=== PATIENT | male | born 1955 | race Caucasian/White ===

== ENCOUNTER 2019-06-02 12:48 | Inpatient (IN) ==
--- NOTE | 2019-06-02 12:51 | Emergency Department Note ---
Disposition Clinical Impression: Cellulitis Disposition: Admitted As Inpatient Condition: Good Referrals: NONE,PCP [Primary Care Provider] - Forms: ED Satisfaction Letter Time of Disposition: 14:50 Skin/Abscess/FB HPI Chief complaint: ED Skin/Abscess/Foreign Body Stated complaint: possible abscess to left buttock Time Seen by Provider: 06/02/19 12:51 Source: patient Mode of arrival: ambulatory Limitations: no limitations Nursing Notes Reviewed: Yes Vital Signs Reviewed: Yes HPI Narrative: 63-year-old gentleman who presents today with left buttock pain. He states that about a week ago he noticed that he got a bug bite while he was out camping. He states the whole buttock is red and swollen now. He has drainage from it. He states he does have a history of hepatitis C as well wanted us to be aware of that. He states he has not had fevers or chills is not having trouble with bowel movements. He states that the wound is getting bigger and the drainage getting worse they came in to be evaluated. No diabetes history no medical problems Pt Subjective Complaint: abscess/boil Home Medications Medication Instructions Recorded Confirmed No Known Home Drugs 06/02/19 06/02/19 Allergies Allergy/AdvReac Type Severity Reaction Status Date / Time No Known Allergies Allergy Verified 06/02/19 12:49 Review of Systems: All other systems are negative except as noted/marked Chart generated with voice recognition software Nursing notes reviewed Old records reviewed Past Medical History - Past Medical History Attestation: Yes The following information was validated with the patient. Source: patient, old records reviewed, nursing notes reviewed Medical history: Reports: no medical history Physical Exam - General Limitations: no limitations General appearance: alert, in no apparent distress - Head Head exam: atraumatic, normocephalic, normal inspection - Eye Eye exam: Present: normal appearance, PERRL, EOMI - ENT ENT exam: normal exam, normal oropharynx, mucous membranes moist - Neck Neck exam: Present: normal inspection, full ROM, trachea midline - Chest Chest inspection: Present: normal inspection, symmetric chest wall rise - Respiratory Respiratory exam: Present: normal lung sounds bilaterally - Cardiovascular Cardiovascular exam: Present: regular rate, normal rhythm, normal heart sounds - Abdominal Exam Abdominal exam: Present: soft, Non-Tender, normal bowel sounds. Absent: tenderness, distention, guarding, rebound, rigidity - Extremities Exam Extremities exam: Present: normal inspection, full ROM, normal capillary refill. Absent: tenderness, pedal edema - Back Exam Back exam: Present: other (Left buttock is erythematous edematous with purulent drainage no fluctuance appreciated) - Neurological Exam Neurological exam: Present: alert, oriented X3, CN II-XII intact - Psychiatric Psychiatric exam: Present: normal affect, normal mood - Skin Skin exam: Present: warm, dry, intact, normal color Course Vital Signs Temperature 98.7 F 06/02/19 12:50 Pulse Rate 99 06/02/19 12:50 Respiratory Rate 18 06/02/19 12:50 Blood Pressure 111/59 06/02/19 12:50 O2 Sat by Pulse Oximetry 94 06/02/19 12:50 Temperature 98.7 F 06/02/19 12:50 Pulse Rate 99 06/02/19 12:50 Respiratory Rate 18 06/02/19 13:50 Blood Pressure 116/65 06/02/19 13:50 O2 Sat by Pulse Oximetry 100 06/02/19 13:50 Oxygen Delivery Oxygen Delivery Room Air Skin/Abscess/Foreign Body - MDM Narrative Medical decision making narrative: 63-year-old man who presents today with right buttock swelling. He is a large area cellulitis. I did a CAT scan to rule out any abscess or necrotizing fasciitis. He has an elevated white count. I started him on IV Zosyn and vancomycin here. Initially was reluctant stay however he did agree to admission so that he can get this debrided and aggressively treated. Patient's comfortable with staying in the hospital. I spoke with Dr. Mccrary who agreed to accept the patient for admission and further treatment - Medical Records Medical records reviewed: Yes I reviewed the patient's medical records. - Lab Data Lab results reviewed: Yes I reviewed the patient's lab results. Result diagrams: 06/02/19 13:13 06/02/19 13:13 Lab Results 06/02/19 06/02/19 06/02/19 Range/Units 13:13 13:13 13:13 WBC 19.0 H (4.3-11.1) K/mcL RBC 4.98 (4.19-5.50) M/mcL Hgb 15.4 (12.9-16.9) g/dL Hct 45.3 (37.5-50.1) % MCV 91.0 (83.0-100.0) fL MCH 30.9 (28.0-33.3) pg MCHC 34.0 (31.6-35.5) g/dL RDW 13.2 (11.5-14.5) % Plt Count 229 (140-400) K/mcL MPV 12.1 (9.4-12.4) fL Immature Gran % 0.6 (0-4) % Seg Neutrophils % 85.9 % Lymphocytes % 5.0 % Monocytes % 7.7 % Eosinophils % 0.5 % Basophils % 0.3 % Neutrophils # 16.3 H (1.6-8.9) K/mcL Lymphocytes # 1.0 (0.6-4.6) K/mcL Monocytes # 1.5 H (0.0-1.3) K/mcL Eosinophils # 0.1 (0.0-0.6) K/mcL Basophils # 0.1 (0.0-0.2) K/mcL PT (9.4-12.1) Seconds INR APTT 29.4 (26.0-36.0) Seconds Sodium 137 (136-145) mEq/L Potassium 4.2 (3.5-5.1) mEq/L Chloride 101 (98-107) mEq/L Carbon Dioxide 27 (23-29) mEq/L BUN 11 (8-23) mg/dL Creatinine 0.98 (0.70-1.30) mg/dL Est GFR ( Amer) > 60 (> 60) Est GFR (Non-Af Amer) > 60 (> 60) BUN/Creatinine Ratio 11 (6-26) Glucose 132 H (70-105) mg/dL Calculated Osmolality 285 (280-300) Lactic Acid (0.5-2.2) mmol/L Calcium 9.3 (8.6-10.3) mg/dL 06/02/19 06/02/19 Range/Units 13:13 13:13 WBC (4.3-11.1) K/mcL RBC (4.19-5.50) M/mcL Hgb (12.9-16.9) g/dL Hct (37.5-50.1) % MCV (83.0-100.0) fL MCH (28.0-33.3) pg MCHC (31.6-35.5) g/dL RDW (11.5-14.5) % Plt Count (140-400) K/mcL MPV (9.4-12.4) fL Immature Gran % (0-4) % Seg Neutrophils % % Lymphocytes % % Monocytes % % Eosinophils % % Basophils % % Neutrophils # (1.6-8.9) K/mcL Lymphocytes # (0.6-4.6) K/mcL Monocytes # (0.0-1.3) K/mcL Eosinophils # (0.0-0.6) K/mcL Basophils # (0.0-0.2) K/mcL PT 13.4 H (9.4-12.1) Seconds INR 1.2 APTT (26.0-36.0) Seconds Sodium (136-145) mEq/L Potassium (3.5-5.1) mEq/L Chloride (98-107) mEq/L Carbon Dioxide (23-29) mEq/L BUN (8-23) mg/dL Creatinine (0.70-1.30) mg/dL Est GFR ( Amer) (> 60) Est GFR (Non-Af Amer) (> 60) BUN/Creatinine Ratio (6-26) Glucose (70-105) mg/dL Calculated Osmolality (280-300) Lactic Acid 2.0 (0.5-2.2) mmol/L Calcium (8.6-10.3) mg/dL - Radiology Data Radiology results reviewed: Yes I reviewed the patient's radiology results. EXAMINATION: CT OF THE PELVIS WITH CONTRAST, 06/02/2019 2:30 pm TECHNIQUE: CT of the pelvis was performed with the administration of intravenous contrast. Multiplanar reformatted images are provided for review. Dose modulation, iterative reconstruction, and/or weight based adjustment of the mA/kV was utilized to reduce the radiation dose to as low as reasonably achievable. COMPARISON: None HISTORY: ORDERING SYSTEM PROVIDED HISTORY: Abscess r/o necfasc 75 mL of Isovue 370 FINDINGS: Skin thickening and underlying subcutaneous edema to the left buttock. No focal fluid collection to suggest abscess formation. No soft tissue gas to suggest necrotizing fasciitis. No sinus or fistula tract identified. No acute or suspicious bony abnormalities. Evaluation of intrapelvic contents demonstrates no acute or suspicious abnormality. Visualized large and small bowel appear unremarkable. Urinary bladder and prostate are unremarkable. No lymphadenopathy is seen. CT/CT pelvis w iv no oral IMPRESSION: Skin thickening and underlying subcutaneous edema to the left buttock concerning for cellulitis. No focal fluid collection to suggest abscess. No soft tissue gas to suggest necrotizing fasciitis. No acute intrapelvic abnormalities. D/ / 06/02/2019 14:36:07 Sly Dahl MD / [email or web address] Interpreting Provider: Sly Dahl MD
[2019-06-02] MEDS ORDERED: Isovue-370 500 ML BOTTLE IVP ONE (13:01)
[2019-06-02] MEDS ORDERED: Piperacillin/Tazobactam 3.375 GM in 0.9 % Sodium Chloride Mini Bag 100 ML IVPB ONE (13:02)
[2019-06-02] MEDS ORDERED: 0.9 % Sodium Chloride 1,000 ML IVC ONE (13:02)
[2019-06-02 13:20] LABS: Basophils # 0.1 K/mcL (0.0-0.2); Basophils % 0.3 %; Eosinophils # 0.1 K/mcL (0.0-0.6); Eosinophils % 0.5 %; Hematocrit 45.3 % (37.5-50.1); Hemoglobin 15.4 g/dL (12.9-16.9); Immature Granulocytes % 0.6 % (0-4); Mean Corpuscular Hemoglobin 30.9 pg (28.0-33.3); Mean Platelet Volume 12.1 fL (9.4-12.4); Monocytes # 1.5 K/mcL (0.0-1.3); Monocytes % 7.7 %; Platelet Count 229 K/mcL (140-400); Red Blood Count 4.98 M/mcL (4.19-5.50); Red Cell Distribution Width 13.2 % (11.5-14.5); Segmented Neutrophils % 85.9 %
[2019-06-02 13:23] LABS: Neutrophils # 16.3 K/mcL (1.6-8.9)
[2019-06-02 13:35] LABS: INR 1.2; Prothrombin Time 13.4 Seconds (9.4-12.1)
[2019-06-02 14:03] LABS: BUN/Creatinine Ratio 11 (6-26); Blood Urea Nitrogen 11 mg/dL (8-23); Calcium 9.3 mg/dL (8.6-10.3); Carbon Dioxide 27 mEq/L (23-29); Chloride 101 mEq/L (98-107); Glucose 132 mg/dL (70-105); Osmolality,Calculated 285 (280-300); Potassium 4.2 mEq/L (3.5-5.1); Sodium 137 mEq/L (136-145); eGFR For African Americans > 60 (> 60); eGFR For Non-African Americans > 60 (> 60)
[2019-06-02] MEDS ORDERED: *HR* FentaNYL (PF) 100 MCG/2 ML VIAL IVP ONE ×2 (14:43→15:04)
[2019-06-02] MEDS ORDERED: Mag Hydrox/Al Hydrox/Simeth 30 ML UDC PO PRN (15:04)
[2019-06-02] MEDS ORDERED: Ondansetron ODT 4 MG TAB.RAPDIS SL PRN (15:04)
[2019-06-02] MEDS ORDERED: MOM Conc 10 ML UD.LIQ PO PRN (15:04)
[2019-06-02] MEDS ORDERED: Ketorolac 30 MG/ML VIAL IVP PRN (15:04)
[2019-06-02] MEDS ORDERED: Naloxone 0.4 MG/ML INJ IVP PRN (15:04)
[2019-06-02] MEDS ORDERED: *HR* HYDROcodone/Acet 5/325 mg TABLET PO PRN (15:04)
[2019-06-02] MEDS ORDERED: 0.9 % Sodium Chloride 1,000 ML IVC SCH (15:04)
[2019-06-02] MEDS ORDERED: Acetaminophen 325 MG TABLET PO PRN (15:04)
[2019-06-02 17:07] LABS: Bilirubin,Urine Negative (Negative); Blood,Urine Trace-intact (Negative); Clarity,Urine Clear (Clear); Color,Urine Yellow (Yellow); Glucose,Urine (UA) Normal (Normal); Ketones,Urine Negative (Negative); Leukocyte Esterase,Urine Negative (Negative); Nitrite,Urine Negative (Negative); Protein,Urine Trace mg/dL (Neg-Trace)
[2019-06-02 17:17] LABS: Bacteria,Urine Few per hpf (None-Few); Mucus,Urine Few (Few); RBC,Urine 0-3 per hpf (0-3); Squamous Epithelial Cell,Urine Few per lpf (None-Few)
[2019-06-02] MEDS: Lactobacillus 1 EACH CAP.SPRINK PO SCH (22:00)
[2019-06-02] MEDS: Piperacillin/Tazobactam 3.375 GM in 0.9 % Sodium Chloride Mini Bag 100 ML IVPB SCH (22:00)
[2019-06-03] MEDS: Piperacillin/Tazobactam 3.375 GM in 0.9 % Sodium Chloride Mini Bag 100 ML IVPB SCH ×3 (05:49→21:08)
[2019-06-03 06:42] LABS: Basophils % 0.3 %; Eosinophils # 0.2 K/mcL (0.0-0.6); Eosinophils % 1.2 %; Hematocrit 41.2 % (37.5-50.1); Hemoglobin 13.9 g/dL (12.9-16.9); Immature Granulocytes % 0.5 % (0-4); Lymphocytes # 1.1 K/mcL (0.6-4.6); Lymphocytes % 7.4 %; Mean Corpuscular HGB Conc 33.7 g/dL (31.6-35.5); Mean Corpuscular Hemoglobin 30.8 pg (28.0-33.3); Mean Corpuscular Volume 91.2 fL (83.0-100.0); Mean Platelet Volume 12.1 fL (9.4-12.4); Monocytes # 1.5 K/mcL (0.0-1.3); Monocytes % 9.8 %; Neutrophils # 12.4 K/mcL (1.6-8.9); Platelet Count 203 K/mcL (140-400); Red Blood Count 4.52 M/mcL (4.19-5.50); Red Cell Distribution Width 13.3 % (11.5-14.5); Segmented Neutrophils % 80.8 %; White Blood Count 15.4 K/mcL (4.3-11.1)
[2019-06-03 06:46] LABS: Basophils # 0.1 K/mcL (0.0-0.2)
[2019-06-03 07:02] LABS: Alanine Aminotransferase 50 Units/L (7-52); Albumin 2.9 g/dL (3.5-5.7); Albumin/Globulin Ratio 1.1 (1.1-2.2); Alkaline Phosphatase 89 Units/L (34-104); Aspartate Amino Transferase 24 Units/L (13-39); BUN/Creatinine Ratio 11 (6-26); Bilirubin,Total 0.7 mg/dL (0.3-1.0); Blood Urea Nitrogen 9 mg/dL (8-23); Calcium 8.5 mg/dL (8.6-10.3); Carbon Dioxide 25 mEq/L (23-29); Chloride 103 mEq/L (98-107); Globulin 2.6 g/dL (2.4-3.5); Glucose 116 mg/dL (70-105); Osmolality,Calculated 286 (280-300); Potassium 3.9 mEq/L (3.5-5.1); Sodium 138 mEq/L (136-145); Total Protein 5.5 g/dL (6.4-8.9); eGFR For African Americans > 60 (> 60); eGFR For Non-African Americans > 60 (> 60)
[2019-06-03] MEDS: Lactobacillus 1 EACH CAP.SPRINK PO SCH ×2 (08:37→21:08)
[2019-06-03] MEDS ORDERED: Ibuprofen 600 MG TABLET PO PRN (10:06)
[2019-06-03] MEDS ORDERED: Ondansetron ODT 4 MG TAB.RAPDIS SL PRN (10:08)
--- NOTE | 2019-06-03 10:12 | Internal Med History&Physical ---
Date of Encounter: 06/03/19 Time of Encounter: 09:45 Assessment and Plan (1) Cellulitis Current visit: Yes Status: Acute He has been started on IV Zosyn and vancomycin with lactobacillus. I suspect abscess formation is developing. Reevaluate daily. Qualifiers: Site of cellulitis: buttock Qualified Code(s): L03.317 - Cellulitis of buttock (2) Dyspnea on exertion Current visit: Yes Status: Acute Room air oximetry will be checked on 6 minute walk prior to discharge. (3) Cough Current visit: Yes Status: Acute His PCP can order additional workup such as chest x-ray and/or chest CT. (4) History of hepatitis Current visit: Yes Status: Acute Hepatitis profile will be ordered. Internal Medicine - H&P: HPI Chief complaint: Left buttock infection Admitted From: Emergency Dept Plans for Post Hospital Care: Home History of present illness: Mr. Goodman is a 63 year old male who came to emergency room stating he experienced a sensation of a bug bite on his left gluteal area the evening of May 26 while camping in the [place] [facility]. By the following day he noticed some incr eased redness and swelling at the bite area. He noticed drainage developing approximately 2 days later and began taking Cipro 500 mg daily from a leftover supply from a previous prescription. When the drainage and soreness did not improve he came to emergency room. He was evaluated and found to have fever of 100.0 and leukocytosis with left shift. No abscess was seen on CT scan. He was admitted to [facility] floor for ongoing care needs. He states he has not had a primary care physician for over 30 years. He does not use prescription medications. He denies other skin lesions. Past Med Surg Social Fam HX - Past Medical History Medical history: no medical history Additional medical history: hep c - Past Surgical History Additional surgical history: right hand - Social History Smoking Status: Current every day smoker Alcohol use: none Drug use: none Internal Medicine - H&P: Meds No Known Home Drugs 06/02/19 [History] Allergy/AdvReac Type Severity Reaction Status Date / Time No Known Allergies Allergy Verified 06/02/19 12:49 All Systems PM: A 10-system review of systems was performed and is negative for pertinent findings except as documented above in the HPI. Review of systems: Gen.: He states his weight has been stable for several years Cardiovascular: He denies hypertension RI heart failure angina dvt or pulmonary embolus Respiratory: He has smoked since age 20 up to 2 packs per day. He has dyspnea on exertion and reports a cough has been present intermittently for the past year GI: He reports being told he had hepatitis when he presented to a [facility] in 2013 with jaundice. He did not allow further testing has had no recurrence of jaundice. He denies other disorders of his liver gallbladder or e xocrine pancreas : He denies hematuria dysuria or kidney stones Neurologic: He denies large distribution strokes or seizures. Endocrine: He denies diabetes thyroid disease or hyperlipidemia Hematology/oncology: He denies blood disorders cancers or anemia Psychiatric: He denies anxiety depression or other mental health issues. [place] skeletal: He had a right hand injury at work in 2017 requiring surgical repair. He denies gout or other bone joint or muscle disorders. - Constitutional Vitals: Temp Pulse Resp BP Pulse Ox 99.2 F 77 22 102/58 96 06/03/19 06:20 06/03/19 06:20 06/03/19 06:20 06/03/19 06:20 06/03/19 06:20 Exam: Gen.: He is a well-developed well-nourished male lying in bed who appears in mild/moderate pain HEENT: Head is atraumatic and normal cephalic. Eyes: EOMI. There is no scleral icterus. Mouth: Mucosa is moist. Neck: Supple and nontender. There is no thyromegaly or adenopathy noted. Heart: Regular without murmurs gallops or ectopics Lungs: No wheezes or crackles are heard. Abdomen: Soft and nontender. No masses or guarding are noted. Extremities: There is no cyanosis edema or clubbing noted. Dorsalis pedis and posterior tibial pulses are trace to 1+ palpable bilaterally. Neurologic: Mental status: He is talkative and a good historian. Cranial nerves: Smile is symmetric. Forehead wrinkles bilaterally. Tongue protrudes midline. EOMI. Motor: There is no pronator drift. Cerebellar: Finger to nose is intact bilaterally. Skin: He has an erythematous and indurated area on his left posterior lateral upper gluteal area approximately 12 cm diameter. There is a shallow ulcerative area with purulent/necrotic exudate approximately 2-3 cm diameter near the center with smaller ulcerative areas and pustules in satellite formation. Internal Med - H&P Results - Labs CBC & Chem 7: 06/03/19 06:08 06/03/19 06:08 Labs: Short CBC 06/02/19 06/03/19 Range/Units 13:13 06:08 WBC 19.0 H 15.4 H (4.3-11.1) K/mcL Hgb 15.4 13.9 D (12.9-16.9) g/dL Hct 45.3 41.2 (37.5-50.1) % Plt Count 229 203 (140-400) K/mcL Neutrophils # 16.3 H 12.4 H (1.6-8.9) K/mcL BMP 06/02/19 06/03/19 13:13 06:08 Sodium 137 138 Potassium 4.2 3.9 Chloride 101 103 Carbon Dioxide 27 25 BUN 11 9 Creatinine 0.98 0.81 Glucose 132 H 116 H Calcium 9.3 8.5 L Liver Function 06/03/19 Range/Units 06:08 Total Bilirubin 0.7 (0.3-1.0) mg/dL AST 24 (13-39) Units/L ALT 50 (7-52) Units/L Alkaline Phosphatase 89 (34-104) Units/L Albumin 2.9 L (3.5-5.7) g/dL Urine 06/02/19 Range/Units 15:00 Urine Color Yellow (Yellow) Urine Clarity Clear (Clear) Urine pH 6.0 (5.0-8.0) pH Units Ur Specific [place] 1.010 (1.010-1.025) Urine Protein Trace (Neg-Trace) mg/dL Urine Glucose (UA) Normal (Normal) mg/dL - Impressions ITS Impressions Pelvis CT 06/02/19 13:01 IMPRESSION: Skin thickening and underlying subcutaneous edema to the left buttock concerning for cellulitis. No focal fluid collection to suggest abscess. No soft tissue gas to suggest necrotizing fasciitis. No acute intrapelvic abnormalities. D/ / 06/02/2019 14:36:07 Sly Dahl MD / [email or web address] Interpreting Provider: Sly Dahl MD
[2019-06-03] MEDS: *HR* Enoxaparin 40 MG/0.4 ML SYRINGE SQ SCH (10:41)
[2019-06-03] MEDS: 0.45 % Sodium Chloride w/KCl 20 MEQ/1,000 ML MLS IVC SCH (10:42)
[2019-06-03] MEDS: Acetaminophen 325 MG TABLET PO SCH ×2 (12:40→17:46)
[2019-06-03] MEDS ORDERED: Aminoglycoside Consult 1 EACH MC ONE (13:00)
[2019-06-03 21:02] LABS: Hepatitis B Surface Antigen Nonreactive (Nonreactive)
[2019-06-03 21:31] LABS: Hepatitis B Core IgM Nonreactive (Nonreactive); Hepatitis C Virus Antibody Nonreactive (Nonreactive)
[2019-06-03 21:33] LABS: Hepatitis A Antibody IgM Nonreactive (Nonreactive)
[2019-06-04] MEDS: Acetaminophen 325 MG TABLET PO SCH ×4 (00:58→18:25)
[2019-06-04] MEDS: 0.45 % Sodium Chloride w/KCl 20 MEQ/1,000 ML MLS IVC SCH ×2 (02:43→13:50)
[2019-06-04] MEDS: *HR* Enoxaparin 40 MG/0.4 ML SYRINGE SQ SCH ×2 (05:58→06:03)
[2019-06-04] MEDS: Piperacillin/Tazobactam 3.375 GM in 0.9 % Sodium Chloride Mini Bag 100 ML IVPB SCH ×3 (05:59→21:55)
[2019-06-04 06:47] LABS: Basophils # 0.1 K/mcL (0.0-0.2); Basophils % 0.5 %; Eosinophils # 0.3 K/mcL (0.0-0.6); Eosinophils % 1.9 %; Hematocrit 42.1 % (37.5-50.1); Immature Granulocytes % 0.8 % (0-4); Lymphocytes # 1.2 K/mcL (0.6-4.6); Lymphocytes % 9.1 %; Mean Corpuscular HGB Conc 33.3 g/dL (31.6-35.5); Mean Corpuscular Hemoglobin 30.8 pg (28.0-33.3); Mean Corpuscular Volume 92.7 fL (83.0-100.0); Mean Platelet Volume 11.6 fL (9.4-12.4); Monocytes # 1.1 K/mcL (0.0-1.3); Monocytes % 8.8 %; Neutrophils # 10.2 K/mcL (1.6-8.9); Platelet Count 236 K/mcL (140-400); Red Blood Count 4.54 M/mcL (4.19-5.50); Red Cell Distribution Width 13.3 % (11.5-14.5); Segmented Neutrophils % 78.9 %; White Blood Count 12.9 K/mcL (4.3-11.1)
[2019-06-04 07:07] LABS: BUN/Creatinine Ratio 10 (6-26); Blood Urea Nitrogen 8 mg/dL (8-23); Calcium 8.8 mg/dL (8.6-10.3); Carbon Dioxide 30 mEq/L (23-29); Chloride 104 mEq/L (98-107); Glucose 113 mg/dL (70-105); Osmolality,Calculated 287 (280-300); Potassium 4.3 mEq/L (3.5-5.1); Sodium 139 mEq/L (136-145); eGFR For African Americans > 60 (> 60); eGFR For Non-African Americans > 60 (> 60)
[2019-06-04] MEDS: Lactobacillus 1 EACH CAP.SPRINK PO SCH ×2 (08:27→21:54)
--- NOTE | 2019-06-04 10:19 | Internal Med Progress Note ---
Date of Encounter: 06/04/19 Time of Encounter: 10:10 - Assessment and plan (1) Cellulitis Current Visit: Yes Status: Acute Assessment and plan: June 04. WBC has decreased to 12.9 with less left shift. Temperature remains normal. Continue IV Zosyn and vancomycin with lactobacillus. Qualifiers: Site of cellulitis: buttock Qualified Code(s): L03.317 - Cellulitis of buttock (2) Dyspnea on exertion Current Visit: Yes Status: Acute Assessment and plan: June 04. Room air oximetry will be checked on 6 minute walk prior to discharge. (3) Cough Current Visit: Yes Status: Acute Assessment and plan: June 04. Chest x-ray and/or CT can be done as outpatient. (4) History of hepatitis Current Visit: Yes Status: Acute Assessment and plan: June 04. Hepatitis screening profile negative. Order hepatitis A total antibody test to evaluate for IgG status. - Subjective Interval history: June 04. He has no new complaints. - Constitutional Vitals: Temp Pulse Resp BP Pulse Ox 98.6 F 53 16 96/60 97 06/04/19 06:47 06/04/19 06:47 06/04/19 06:47 06/04/19 06:47 06/04/19 06:47 Exam: He is resting comfortably in bed and appears in no acute distress. His affect is bright and cheerful. His left gluteal area shows no worsening of erythema, induration, or exudate/drainage. I reviewed his medications and lab results. Internal Medicine: Result - Labs CBC & Chem 7: 06/04/19 06:00 06/04/19 06:00 Labs: Short CBC 06/04/19 Range/Units 06:00 WBC 12.9 H (4.3-11.1) K/mcL Hgb 14.0 (12.9-16.9) g/dL Hct 42.1 (37.5-50.1) % Plt Count 236 (140-400) K/mcL Neutrophils # 10.2 H (1.6-8.9) K/mcL BMP 06/04/19 06:00 Sodium 139 Potassium 4.3 Chloride 104 Carbon Dioxide 30 H BUN 8 Creatinine 0.84 Glucose 113 H Calcium 8.8 - ABG Interpretation ABG results: PT/INR, D-dimer PT 13.4 Seconds (9.4-12.1) H 06/02/19 13:13 Consult Discharge Plan - Plan Referrals: NONE,PCP [Primary Care Provider] - 1 week
[2019-06-05] MEDS: Acetaminophen 325 MG TABLET PO SCH ×4 (00:30→18:04)
[2019-06-05] MEDS: *HR* Enoxaparin 40 MG/0.4 ML SYRINGE SQ SCH (06:58)
[2019-06-05] MEDS: Piperacillin/Tazobactam 3.375 GM in 0.9 % Sodium Chloride Mini Bag 100 ML IVPB SCH ×2 (07:00→15:47)
[2019-06-05 08:47] LABS: Basophils # 0.1 K/mcL (0.0-0.2); Basophils % 0.9 %; Eosinophils # 0.4 K/mcL (0.0-0.6); Eosinophils % 4.6 %; Hematocrit 43.3 % (37.5-50.1); Hemoglobin 14.5 g/dL (12.9-16.9); Immature Granulocytes % 1.1 % (0-4); Lymphocytes # 1.3 K/mcL (0.6-4.6); Lymphocytes % 13.6 %; Mean Corpuscular HGB Conc 33.5 g/dL (31.6-35.5); Mean Corpuscular Hemoglobin 30.7 pg (28.0-33.3); Mean Corpuscular Volume 91.7 fL (83.0-100.0); Mean Platelet Volume 11.3 fL (9.4-12.4); Monocytes # 0.7 K/mcL (0.0-1.3); Monocytes % 7.2 %; Neutrophils # 6.7 K/mcL (1.6-8.9); Platelet Count 273 K/mcL (140-400); Red Blood Count 4.72 M/mcL (4.19-5.50); Red Cell Distribution Width 13.1 % (11.5-14.5); Segmented Neutrophils % 72.6 %; White Blood Count 9.3 K/mcL (4.3-11.1)
[2019-06-05] MEDS: Lactobacillus 1 EACH CAP.SPRINK PO SCH (09:33)
[2019-06-05 17:04] VITALS: BP 119/65
--- NOTE | 2019-06-05 18:06 | Discharge Summary ---
Orders not resulted at time of discharge: Pending orders 06/02/19 13:13 Culture,Blood [BC] Stat 06/03/19 17:50 Culture,Wound [RM] Routine 06/04/19 12:58 Hepatitis A Antibody Total Routine 06/06/19 13:30 Vancomycin,Trough Timed Date of Encounter: 06/05/19 Time of Encounter: 17:00 - Discharge Diagnosis (1) Cellulitis Priority: Primary Status: Acute Qualifiers: Site of cellulitis: buttock Qualified Code(s): L03.317 - Cellulitis of buttock (2) Dyspnea on exertion Priority: Secondary Status: Acute (3) History of hepatitis Priority: Secondary Status: Acute Hospital course: Mr. Goodman is a 63 year old male who came to emergency room stating he experienced a sensation of a bug bite on his left gluteal area the evening of May 26 while camping in the [facility]. By the following day he noticed some increased redness and swelling at the bite area. He noticed drainage developing approximately 2 days later and began taking Cipro 500 mg daily from a leftover supply from a previous prescription. When the drainage and soreness did not improve he came to emergency room. He was evaluated and found to have fever of 100.0 and leukocytosis with left shift. No abscess was seen on CT scan. He was admitted to [facility] for ongoing care needs. Initial orders were written by the emergency room physician. I saw him on June 03 performed a history and physical. He was started empirically on IV Zosyn and vancomycin with lactobacillus. Wound culture was done and returned showing staph aureus on preliminary results at time of transfer. WBC and left shift normalized by June 05. Repeat CT scan June 05 showed no significant change with no definite abscess identified. The wound bed appeared to have more fibrinous exudate present and I felt he needed surgical consultation for wound debridement. Contact was made with [facility] and arrangements were complete the evening of June 05 for transfer. He reported an episode of "yellow jaundice" approximately 4 years ago. Hepatitis screening returned nonreactive. Hepatitis A total antibody test was ordered which would include IgG. This is pending at time of discharge. - Time Spent with Patient Total time spent providing and/or coordinating discharge services: - Discharge Medications Prescriptions: No Action No Known Home Drugs 1 each .ROUTE AD each Home Medications: No Known Home Drugs 06/02/19 [History] Allergies/Adverse Reactions: Allergy/AdvReac Type Severity Reaction Status Date / Time No Known Allergies Allergy Verified 06/02/19 12:49 Date of admission: 06/03/19 10:08 Primary care physician: PCP NONE - Constitutional Vitals: Temp Pulse Resp BP Pulse Ox 98.3 F 52 19 119/65 99 06/05/19 17:02 06/05/19 17:02 06/05/19 17:02 06/05/19 17:02 06/05/19 17:02 - Patient Status Disposition: Transfer Other Condition: Good - Discharge Instructions
== END 2019-06-05 18:27 | disposition other institution (70) | DRG 603 ==
LOC: INPPIK 12:48 → EMEROOPIK 12:48 → INPPIK 15:27
PROVIDERS: ADMIT Internal Medicine; ATTEND Internal Medicine